=== PATIENT | male | born 1970 | race Caucasian/White ===

== ENCOUNTER → 2022-10-25 | Outpatient (CLI) | payer BC ==
[2022-10-25 16:14] LABS: Basophils % (A) 1.2 %; Eosinophils # (A) 0.44 X 10*3/uL (0.04-0.35); Eosinophils % (A) 5.3 %; HGB 14.7 g/dL (13.0-17.0); Immature Grans, Automated 0.4 %; Lymphocytes # (A) 2.65 X 10*3/uL (0.90-5.00); Lymphocytes % (A) 32.1 %; MCH 30.4 pg (27.0-32.0); MCHC 32.7 g/dL (32.0-37.0); MCV 93.2 fL (80.0-97.0); Mean Platelet Volume 11.4 fL (9.5-12.2); Monocytes # (A) 0.53 X 10*3/uL (0.20-1.00); Monocytes % (A) 6.4 %; NRBC Per 100 WBC 0 /100 WBCS (0.0-0.0); Neutrophils % (A) 54.6 %; Platelet Count 159 X 10*3/uL (140-440); RBC 4.83 X 10*6/uL (4.40-5.60); RDW 12.8 % (11.5-14.5); WBC 8.25 X 10*3/uL (4.50-10.00)
[2022-10-25 16:27] LABS: African American GFR (CKD) 121.8 (60.0-200.0); Albumin 4.6 g/dL (3.8-4.9); BUN/Creat Ratio 22.44 Ratio (12.00-20.00); Blood Urea Nitrogen 16.4 mg/dL (9.0-27.0); Calcium 9.3 mg/dL (8.7-10.3); Carbon Dioxide 23.2 mmol/L (20.0-27.5); Globulin 2.3 g/dL (1.6-3.3); Non-African American GFR(CKD) 105.1 (60.0-200.0); Potassium 4.6 mmol/L (3.5-5.5); Total Bilirubin 0.6 mg/dL (0.30-1.20); Total Protein 6.9 g/dL (6.2-8.2)
== END | disposition home or self-care (01) ==
LOC: LABWHC1 08:23
PROVIDERS: ATTEND Family Medicine
DX: I10 Essential (primary) hypertension (principal); E11.65 Type 2 diabetes mellitus with hyperglycemia
CPT/HCPCS: 36415; 80053; 83036; 85025

== ENCOUNTER → 2023-02-23 | Outpatient (CLI) | payer OTHER ==
--- NOTE | 2023-02-23 08:22 | XR ---
EXAMINATION TYPE: XR knee complete RT DATE OF EXAM: 02/23/2023 COMPARISON: NONE HISTORY: 53-year-old male M25.561, right knee pain TECHNIQUE: 3 views FINDINGS: There is mild tricompartmental degenerative spurring. Small to moderate knee joint effusion. Extensor mechanism appears intact. No acute fracture, subluxation, dislocation is seen. Some degenerative spu rring is also present of the proximal tibiofibular joint. IMPRESSION: 1. At least mild tricompartmental osteoarthrosis. 2. No acute osseous abnormality seen. 3. However, there is a small to moderate joint effusion. If concern for internal arrangement, MRI can be performed.
== END | disposition home or self-care (01) ==
LOC: RADXRMAIN 07:00
PROVIDERS: ATTEND Family Medicine
DX: M17.11 Unilateral primary osteoarthritis, right knee (principal); M25.461 Effusion, right knee

== ENCOUNTER → 2023-12-26 | Outpatient (CLI) | payer OTHER ==
[2023-12-26 13:41] LABS: Basophils # (A) 0.11 X 10*3/uL (0.00-0.10); Basophils % (A) 1.2 %; Eosinophils # (A) 0.37 X 10*3/uL (0.04-0.35); Eosinophils % (A) 4.2 %; HCT 47.1 % (39.6-50.0); HGB 15.8 g/dL (13.0-17.0); Lymphocytes # (A) 2.54 X 10*3/uL (0.90-5.00); Lymphocytes % (A) 28.5 %; MCH 30.9 pg (27.0-32.0); MCHC 33.5 g/dL (32.0-37.0); Mean Platelet Volume 11.5 FL (9.5-12.2); Monocytes # (A) 0.55 X 10*3/uL (0.20-1.00); Monocytes % (A) 6.2 %; NRBC Per 100 WBC 0 X 10*3/uL (0.00-0.01); Neutrophils # (A) 5.28 X 10*3/uL (1.80-7.70); Neutrophils % (A) 59.3 %; Platelet Count 167 X 10*3/uL (140-440); RBC 5.12 X 10*6/uL (4.40-5.60)
[2023-12-26 14:03] LABS: ALT 72 U/L (10-49); AST 54 U/L (14-35); Albumin 4.6 g/dL (3.8-4.9); Albumin/Globulin Ratio 1.92 Ratio (1.60-3.17); Alkaline Phosphatase 80 U/L (41-126); BUN/Creat Ratio 24.38 Ratio (12.00-20.00); Blood Urea Nitrogen 19.5 mg/dL (9.0-27.0); Calcium 9.5 mg/dL (8.7-10.3); Carbon Dioxide 25.1 mmol/L (21.6-31.8); Chloride 102 mmol/L (96-109); Globulin 2.4 g/dL (1.6-3.3); Glucose 114 mg/dL (70-110); Potassium 4.8 mmol/L (3.5-5.5); Sodium 138 mmol/L (135-145); Total Bilirubin 0.6 mg/dL (0.3-1.2)
== END | disposition home or self-care (01) ==
LOC: LABWHC1 08:01
PROVIDERS: ATTEND Family Medicine
DX: E11.65 Type 2 diabetes mellitus with hyperglycemia (principal)
CPT/HCPCS: 36415; 80053; 83036; 85025

== ENCOUNTER 2024-04-05 07:45 | Day surgery (SDC) | payer OTHER ==
[2024-04-05 08:30] VITALS: TEMP 97.8
[2024-04-05] MEDS: IV FLUID CONTINUATION 1,000 ML IV ONE (08:44)
[2024-04-05] MEDS: LACTATED RINGERS 1,000 ML IV SCH (08:47)
[2024-04-05 08:50] LABS: Glucose,Whole Blood 167 mg/dL (70-110)
[2024-04-05] MEDS ORDERED: LIDOCAINE 1% INJ 10MG/ML (20 ML MDV) ONE (09:08)
[2024-04-05] MEDS ORDERED: PROPOFOL 10 MG/ML 20 ML VIAL IV ONE (09:08)
--- NOTE | 2024-04-05 09:24 | P.PCN ---
Date of Procedure: 04/05/24 Procedure(s) Performed: BRIEF HISTORY: Patient is a 54-year-old pleasant white male scheduled for an elective colonoscopy as a part of screening for colon cancer. PROCEDURE PERFORMED: Colonoscopy with snare polypectomy. PREOPERATIVE DIAGNOSIS: Screening for colon cancer. IV sedation per Anesthesia. PROCEDURE: After informed consent was obtained, the patient, was brought into the endoscopy unit. IV sedation was administered by Anesthesia under continuous monitoring. Digital rectal examination was normal. Initially the Olympus CF-160 flexible video colonoscope was then inserted in the rectum, gradually advanced into the cecum without any difficulty. Careful examination was performed as the scope was gradually being withdrawn. Ileocecal valve and the appendiceal orifice were visualized and appeared normal. Prep was fair. Mucosa of the cecum appeared normal. Descending colon there was a 1 cm broad-based polyp removed by snare polypectomy. In the transverse colon there is a 5 mm and 7 mm polyp removed by snare polypectomy. Rest of the, ascending colon, transverse colon, descending colon, and rectum appeared normal. Anastomosis from previous sigmoid colectomy was located at 50 cm from the anal verge that appeared normal. Retroflexion was performed in the rectum and no lesions were seen. The patient tolerated the procedure well. IMPRESSION: 1 cm ascending colon polyp status post polypectomy 5 mm and 7 mm transverse colon polyp status post polypectomy Sigmoid anastomosis at 15 cm from anal verge appeared normal RECOMMENDATIONS: Findings of this examination were discussed with the patient as well as his family. He was advised to follow-up the biopsy results of the bi opsy reveals adenoma, recommended repeat colonoscopy in 3 years..
[2024-04-05 09:30] VITALS: RESP 16
[2024-04-05 09:44] VITALS: BP 119/74; PULSE 62
== END 2024-04-05 10:07 | disposition home or self-care (01) ==
LOC: ORWHC2ENDO 07:45
PROVIDERS: ATTEND Internal Medicine Gastroenterology
DX: Z12.11 Encounter for screening for malignant neoplasm of colon (principal); D12.2 Benign neoplasm of ascending colon; D12.3 Benign neoplasm of transverse colon; I10 Essential (primary) hypertension; E78.5 Hyperlipidemia, unspecified; G47.33 Obstructive sleep apnea (adult) (pediatric); E11.9 Type 2 diabetes mellitus without complications; K76.0 Fatty (change of) liver, not elsewhere classified; Z79.84 Long term (current) use of oral hypoglycemic drugs; Z79.899 Other long term (current) drug therapy
CPT/HCPCS: 88305; 45385; J2001; J2704

== ENCOUNTER → 2024-07-23 | Outpatient (CLI) | payer OTHER ==
[2024-07-23 13:43] LABS: ALT 33 U/L (10-49); AST 28 U/L (14-35); Albumin 4.7 g/dL (3.8-4.9); Albumin/Globulin Ratio 1.88 Ratio (1.60-3.17); Alkaline Phosphatase 97 U/L (41-126); BUN/Creat Ratio 19.22 Ratio (12.00-20.00); Blood Urea Nitrogen 17.3 mg/dL (9.0-27.0); Calcium 9.6 mg/dL (8.7-10.3); Carbon Dioxide 22.9 mmol/L (21.6-31.8); Chloride 103 mmol/L (96-109); Globulin 2.5 g/dL (1.6-3.3); Glucose 100 mg/dL (70-110); LDL Cholesterol,Calculated 106.4 mg/dL (0.0-131.0); Potassium 4.7 mmol/L (3.5-5.5); Sodium 139 mmol/L (135-145); Total Bilirubin 0.6 mg/dL (0.3-1.2); Total Protein 7.2 g/dL (6.2-8.2)
[2024-07-23 13:50] LABS: WBC 8.42 X 10*3/uL (4.50-10.00)
[2024-07-23 13:51] LABS: Basophils % (A) 1.2 %; Eosinophils # (A) 0.36 X 10*3/uL (0.04-0.35); Eosinophils % (A) 4.3 %; HCT 47.6 % (39.6-50.0); HGB 15.9 g/dL (13.0-17.0); Immature Platelet Fraction 16.4 % (1.1-6.1); Lymphocytes # (A) 2.53 X 10*3/uL (0.90-5.00); MCH 30.9 pg (27.0-32.0); MCHC 33.4 g/dL (32.0-37.0); MCV 92.6 FL (80.0-97.0); Mean Platelet Volume 12.2 FL (9.5-12.2); Monocytes # (A) 0.56 X 10*3/uL (0.20-1.00); Monocytes % (A) 6.7 %; NRBC Per 100 WBC 0 X 10*3/uL (0.00-0.01); Neutrophils # (A) 4.84 X 10*3/uL (1.80-7.70); Neutrophils % (A) 57.4 %; Platelet Count 80 X 10*3/uL (140-440); RBC 5.14 X 10*6/uL (4.40-5.60); RBC Morphology Normal (Normal); RDW 13.3 % (11.5-14.5)
== END | disposition home or self-care (01) ==
LOC: LABWHC1 07:58
PROVIDERS: ATTEND Family Medicine
DX: Z00.00 Encounter for general adult medical examination without abnormal findings (principal)
CPT/HCPCS: 36415; 80053; 80061; 83036; 84153; 85025

== ENCOUNTER → 2024-08-03 | Outpatient (CLI) | payer OTHER ==
--- NOTE | 2024-08-03 08:16 | US ---
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 TECHNIQUE: Grayscale and color Doppler imaging of the abdomen was performed. FINDINGS: EXAM MEASUREMENTS: Liver Length: 19.9 cm Gallbladder Wall: 0.21 cm CBD: 0.56 cm Spleen: 11.0 cm Right Kidney: 12.1 x 6.6 x 5.6 cm Left Kidney: 12.1 x 6.7 x 5.1 cm [employer] NOTES: Exam is limited due to gas. Pancreas: *Tail is obscured. Liver: *Enlarged. Appears heterogeneous and coarse in echotexture. Hypoechoic area seen within the liver adjacent to the gallbladder: 3.4 x 1.9 x 1.3 cm. Gallbladder: *Hyperechoic area seen that appears to be attached to the gallbladder wall: 0.2 x 0.4 x 0.2 cm. Evidence for sonographic Way's sign: No CBD: Measures upper limits. Spleen: *Shape appears irregular- pt has had part of his spleen removed. Right Kidney: No hydronephrosis or masses seen Left Kidney: No hydronephrosis or masses seen Upper IVC: Appears wnl Abd Aorta: Proximal segment appears ectatic= 2.7 cm. Distal aorta and iliac arteries were obscured. IMPRESSION: 1. No evidence for acute process. 2. Hepatic steatosis with focal fatty sparing along the gallbladder fossa. 3. Gallbladder polyp measuring up to 4 mm. Consider short-term follow-up in 6 months to ensure stabi lity. 4. Partial splenectomy per patient. 5. 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 [facility], , 08/03/2024 8:14 AM
== END | disposition home or self-care (01) ==
LOC: RADUSWWP 06:50
PROVIDERS: ATTEND Family Medicine
CPT/HCPCS: 76700